=== PATIENT | male | born 1930 | race Caucasian/White ===

== ENCOUNTER → 2017-07-23 | Outpatient (CLI) | payer MEDICARE ==
[2017-07-23 17:40] LABS: BASO % 0.4 %; BASO ABS # 0.02 K/uL (0-0.2); EOS % 1.3 %; EOS ABS # 0.06 K/uL (0-0.5); HEMATOCRIT 38.3 % (42-52); HEMOGLOBIN 12.3 g/dL (14.0-18.0); IG# 0.01 K/uL (0.00-0.02); LYMPH % 35.9 %; LYMPH ABS # 1.63 K/uL (1.2-3.4); MEAN CORPUSCULAR HEMOGLOBIN 31.5 pg (25-34); MEAN CORPUSCULAR HGB CONC 32.1 g/dl (32-36); MEAN PLATELET VOLUME 11.1 fL (7.4-10.4); MONO % 26.9 %; MONO ABS # 1.22 K/uL (0.11-0.59); NEUT % 35.3 %; PLATELET COUNT 106 K/uL (130-400); RED CELL DISTRIBUTION WIDTH SD 57.7 fL (36.4-46.3); WHITE BLOOD COUNT 4.54 K/uL (4.8-10.8)
[2017-07-23 17:55] LABS: ALBUMIN 3.9 gm/dl (3.4-5.0); ALT/SGPT 24 U/L (12-78); BLOOD UREA NITROGEN 26 mg/dl (7-18); CALCIUM 8.8 mg/dl (8.5-10.1); CARBON DIOXIDE 27 mmol/L (21-32); CHOLESTEROL 97 mg/dl (0-200); GLUCOSE 83 mg/dl (70-99); LDL CHOLESTEROL CALCULATED 34 mg/dl; POTASSIUM 4.6 mmol/L (3.5-5.1); SODIUM 139 mmol/L (136-145)
[2017-07-23 18:06] LABS: ALKALINE PHOSPHATASE 47 U/L (45-117); AST/SGOT 32 U/L (15-37); TOTAL PROTEIN 8.3 gm/dl (6.4-8.2)
== END | disposition home or self-care (01) ==
LOC: C.LABBFT 12:02
PROVIDERS: ATTEND Internal Medicine
DX: I25.10 Atherosclerotic heart disease of native coronary artery without angina pectoris (principal); E78.5 Hyperlipidemia, unspecified; I48.91 Unspecified atrial fibrillation

== ENCOUNTER → 2017-08-06 | Outpatient (CLI) | payer MEDICARE ==
[2017-08-06 17:58] LABS: BASO % 0.4 %; BASO ABS # 0.02 K/uL (0-0.2); EOS % 1.5 %; EOS ABS # 0.07 K/uL (0-0.5); HEMATOCRIT 38.7 % (42-52); IG# 0.02 K/uL (0.00-0.02); LYMPH % 41.5 %; LYMPH ABS # 1.98 K/uL (1.2-3.4); MEAN CELL VOLUME 95.6 fL (80-100); MEAN CORPUSCULAR HEMOGLOBIN 32.1 pg (25-34); MEAN CORPUSCULAR HGB CONC 33.6 g/dl (32-36); MEAN PLATELET VOLUME 11.3 fL (7.4-10.4); MONO ABS # 1.05 K/uL (0.11-0.59); NEUT % 34.2 %; NEUT ABS # 1.63 K/uL (1.4-6.5); PLATELET COUNT 101 K/uL (130-400); RED CELL DISTRIBUTION WIDTH CV 15.5 % (11.5-14.5); RED CELL DISTRIBUTION WIDTH SD 54.6 fL (36.4-46.3); WHITE BLOOD COUNT 4.77 K/uL (4.8-10.8)
[2017-08-06 18:03] LABS: ALBUMIN 3.9 gm/dl (3.4-5.0); ALT/SGPT 23 U/L (12-78); BLOOD UREA NITROGEN 27 mg/dl (7-18); CALCIUM 9.1 mg/dl (8.5-10.1); CARBON DIOXIDE 30 mmol/L (21-32); CREATININE 1.25 mg/dl (0.60-1.40); GLUCOSE 93 mg/dl (70-99); POTASSIUM 4.9 mmol/L (3.5-5.1); SODIUM 139 mmol/L (136-145)
[2017-08-06 18:13] LABS: ALKALINE PHOSPHATASE 47 U/L (45-117); AST/SGOT 31 U/L (15-37); TOTAL PROTEIN 8.6 gm/dl (6.4-8.2)
== END ==
LOC: C.LABBFT 13:19
PROVIDERS: ATTEND Internal Medicine
DX: I25.10 Atherosclerotic heart disease of native coronary artery without angina pectoris (principal)

== ENCOUNTER 2018-06-27 20:06 | Inpatient (IN) ==
--- NOTE | 2018-06-27 20:46 | XRay Report ---
XR chest 1V portable CLINICAL HISTORY: Dyspnea COUGH COMPARISON STUDY: No previous studies for comparison. FINDINGS: The heart is enlarged. There are postsurgical changes of a midline sternotomy. There are ri ght lower lobe airspace opacity suspicious for pneumonia. There is mild elevation of the interstitium , and coexistent mild pulmonary vascular congestion is suspected. Trace pleural effusions are suspect ed.[ IMPRESSION: 1. Cardiomegaly, mild pulmonary vascular congestion, and trace pleural effusions 2. Focal right lower lobe airspace opacity suspicious for a pneumonia given the history of cough. Cli nical and radiographic follow-up is recommended. Electronically signed by: Ernie Zarate M.D. 06/27/2018 8:44 PM
[2018-06-27 20:49] LABS: Basophils # (auto) 0.01 K/uL (0-0.2); Basophils % (auto) 0.1 %; Eosinophils # (auto) 0.03 K/uL (0-0.5); Eosinophils % (auto) 0.3 %; Hematocrit (blood only) 36.5 % (42-52); Hemoglobin 11.7 g/dL (14.0-18.0); Immature Granulocytes # (auto) 0.04 K/uL (0.00-0.02); Immature Granulocytes % (auto) 0.3 %; Lymphocytes # (auto) 1.13 K/uL (1.2-3.4); Lymphocytes % (auto) 9.7 %; Mean Corpuscular Hgb Conc 32.1 g/dL (32-36); Mean Corpuscular Volume 95.8 fL (80-100); Mean Platelet Volume 11.2 fL (7.4-10.4); Monocytes # (auto) 1.91 K/uL (0.11-0.59); Monocytes % (auto) 16.4 %; Neutrophils # (auto) 8.53 K/uL (1.4-6.5); Neutrophils % (auto) 73.2 %; Platelet Count 133 K/uL (130-400); RDW Coefficient of Variation 15.5 % (11.5-14.5); RDW Standard Deviation 53.9 fL (36.4-46.3); Red Blood Count 3.81 M/uL (4.7-6.1); White Blood Count 11.65 K/uL (4.8-10.8)
[2018-06-27] MEDS ORDERED: ONDANSETRON INJ 2 MG/ML 2 ML VIAL IV STA (20:58)
[2018-06-27] MEDS: LEVOFLOXACIN/D5W 750 MG/150 ML BAG IV SCH (21:00)
[2018-06-27 21:01] LABS: INR 1.8 (0.9-1.1); Partial Thromboplastin Ratio 1.1; Prothrombin Time 17.6 Seconds (9.0-12.0)
[2018-06-27 22:05] LABS: Alanine Aminotransferase 25 U/L (12-78); Albumin Globulin Ratio 0.8 (0.9-2); Alkaline Phosphatase 66 U/L (45-117); Aspartate Aminotransferase 31 U/L (15-37); Blood Urea Nitrogen 28 mg/dl (7-18); Carbon Dioxide 26 mmol/L (21-32); Chloride 110 mmol/L (98-107); Creatinine Clr Calc Pharmacy 47.3 ml/min; Est GFR (African American) 58.2; Est GFR (Non-African American) 50.2; Globulin 5.1 gm/dl (2.5-4.0); Glucose 149 mg/dl (70-99); Potassium 4.5 mmol/L (3.5-5.1); Sodium 141 mmol/L (136-145); Total Protein 9.1 gm/dl (6.4-8.2)
[2018-06-27 22:16] LABS: Bilirubin,Total 1.4 mg/dl (0.2-1); Troponin I < 0.015 ng/ml (0-0.045)
[2018-06-27] MEDS ORDERED: IOVERSOL 100ml IV PRN (22:24)
--- NOTE | 2018-06-27 22:34 | CT Scan Report ---
CT ANGIOGRAM OF THE CHEST CLINICAL HISTORY: Shortness of breath, cough, hemoptysis. Possible pulmonary embolism. COMPARISON STUDY: Chest x-ray dated 06/27/2018 TECHNIQUE: Following the IV administration of 89 mL of Optiray-320, CT angiogram of the thorax was pe rformed from the thoracic inlet to the lung bases utilizing the pulmonary embolus protocol. Images ar e reviewed in the axial, sagittal, and coronal planes. IV contrast was administered without complicat ion. MIP imaging was performed. A dose lowering technique was utilized adhering to the principles of ALARA. CT DOSE: 389.81 mGy.cm FINDINGS: The liver has a nodular contour suggesting underlying cirrhosis. There is a rim calcified 9 mm left lobe thyroid nodule. There are mildly enlarged paratracheal and AP window lymph nodes. There is no evidence of pathologic axillary lymphadenopathy. There is mild aneurysmal dilatation of the ascending thoracic aorta which measures 43 mm. There were no pulmonary artery filling defects to indicate acute pulmonary embolism. The heart is enlarged with coronary artery calcifications. There is a small left pleural effusion and trace right pleural effusion. There are extensive right lower lobe airspace opacities. Right middle lobe and left lower lobe airspa ce opacities are also present. The findings statistically represent a pneumonia. Pulmonary hemorrhage and edema could appear similar. There is mild underlying emphysema. There is lower lobe bronchial wa ll thickening. IMPRESSION: 1. Extensive bilateral lower lobe airspace opacities, likely representing a multifocal pneumonia. Pul monary hemorrhage and edema could appear similar and clinical correlation and follow-up will be neces haris 2. No evidence of acute pulmonary embolism 3. Moderate to marked cardiomegaly with coronary calcifications 4. Small left pleural effusion and trace right pleural effusion 5. Mild aneurysmal dilatation of the ascending thoracic aorta (43 mm) 6. Mild mediastinal lymphadenopathy Electronically signed by: Ernie Zarate M.D. 06/27/2018 10:33 PM
[2018-06-27] MEDS ORDERED: cefTRIAXone SODIUM 1,000 MG/50 ML BAG IV STA (22:49)
[2018-06-27] MEDS ORDERED: PHYTONADIONE 5 MG in SODIUM CHLORIDE 0.9% 50 ML IV ONE (22:50)
--- NOTE | 2018-06-28 00:04 | Emergency Department Note ---
Entered by Shreya Tolliver acting as a scribe for Juan Newman DO History of Present Illness General Chief complaint: GI Assessment Stated complaint: COLD, COUGHING UP BLOOD/ ON BLOOD THINNERS Source: patient History of Present Illness Onset (ago): week(s) (few) Location: chest Pain Consistency: + other (worsening) Quality: + other (cough) Associated symptoms: + other (positive coughing up blood; negative abdominal pain; negative diarrhea; negative urinary symptoms); no nausea/vomiting and no shortness of breath The patient is a 88 year old male who presents to the Emergency Room with complaints of a worsening cough that began a few weeks prior to arrival. The patient states that he has had a runny nose during this time. The patient states that his cough had improved, but states that it has gotten worse over the past day. The patient states that an hour prior to arrival, he had a continuous cough for about 10 minutes. He states that he coughed up blood at this time. The patient denies abdominal pain, nausea, vomiting, diarrhea, urinary symptoms, or shortness of breath. The patient states that he is on Coumadin, and states that he has a history of Afib and a quadruple bypass. The patient denies a history of blood clots. Home Medications Home Medications Medication Instructions Recorded Confirmed Type digoxin 125 mcg tablet 0.125 mg PO DAILY 02/20/18 06/27/18 History dorzolamide-timolol (PF) 2 %-0.5 % 1 drops OPB DAILY ea 02/20/18 06/27/18 History eye drops in a dropperette finasteride 5 mg tablet 5 mg PO DAILY 02/20/18 06/27/18 History lutein-zeaxanthin 25 mg-5 mg 1 cap PO DAILY cap 02/20/18 06/27/18 History capsule pravastatin 40 mg tablet 40 mg PO DAILY 02/20/18 06/27/18 History tamsulosin 0.4 mg capsule 0.4 mg PO DAILY 02/20/18 06/27/18 History verapamil ER 180 mg 24 hr 180 mg PO DAILY 02/20/18 06/27/18 History capsule,extended release warfarin 4 mg tablet 4 mg PO DAILY 02/20/18 06/27/18 History Allergies Allergy/AdvReac Type Severity Reaction Status Date / Time No Known Allergies Allergy Verified 06/27/18 20:38 Past Med/Surg History Medical History Afib (Acute) [facility] (current) use of anticoagulants (Acute) High cholesterol Surgical History History of coronary artery bypass surgery Social History Feels Safe at Home: Yes Smoking Status: Former smoker Review of Systems See HPI for pertinent positives & negatives. and A total of 10 systems reviewed and were otherwise negative Physical Exam Vital Signs Vital Signs - 24 hr 06/27/18 20:08 06/27/18 21:01 06/27/18 21:02 Temperature 36.4 C L Temperature Source Oral Sepsis Recent Fever Within 48 Hours No Sepsis Action Taken by Nursing No Action Required Pulse Rate 101 H 97 H Pulse Rate [Right Finger] 95 H Pulse Rhythm Irregular Pulse Rhythm [Right Finger] Irregular Pulse Strength [Right Finger] Normal Respiratory Rate 22 30 H Respiratory Effort / Characteristics Non-Labored Respiratory Depth Normal Normal Respiratory Pattern Regular Blood Pressure 183/82 H Blood Pressure [Left Arm] 168/90 H Blood Pressure Mean 115 Blood Pressure Mean [Left Arm] 116 Blood Pressure Position [Left Arm] Lying Pulse Oximetry 91 85 L 85 L Oxygen Delivery Method Room Air Room Air Nasal Cannula Oxygen Flow Rate 4 06/27/18 22:00 06/27/18 22:41 Temperature Temperature Source Sepsis Recent Fever Within 48 Hours Sepsis Action Taken by Nursing Pulse Rate Pulse Rate [Right Finger] 84 90 Pulse Rhythm Pulse Rhythm [Right Finger] Pulse Strength [Right Finger] Respiratory Rate 26 H 22 Respiratory Effort / Characteristics Respiratory Depth Respiratory Pattern Blood Pressure Blood Pressure [Left Arm] 158/77 H 174/86 H Blood Pressure Mean Blood Pressure Mean [Left Arm] 104 115 Blood Pressure Position [Left Arm] Lying Pulse Oximetry 97 94 Oxygen Delivery Method Nasal Cannula Nasal Cannula Oxygen Flow Rate 4 4 GENERAL: Sitting up in bed, alert, well appearing, well nourished, no acute distress, non-toxic. Dry productive cough. EYE EXAM: normal conjunctiva. OROPHARYNX: no exudate, no erythema, lips, buccal mucosa, and tongue normal and mucous membranes are moist NECK: supple, no nuchal rigidity, no adenopathy, non-tender LUNGS: Normal chest wall mechanics. Diffuse wheezing bilaterally, worse at the bases. HEART: no murmurs, S1 normal and S2 normal ABDOMEN: abdomen soft, non-tender, normo-active bowel, sounds, no masses, no rebound or guarding. BACK: Back is symmetrical on inspection and there is no deformity, no midline tenderness, no CVA tenderness. SKIN: no rashes and no bruising UPPER EXTREMITIES: upper extremities are grossly normal. LOWER EXTREMITIES: Calves are equal bilaterally with mild pedal edema. NEURO EXAM: Normal sensorium, cranial nerves II-XII intact, normal speech, no weakness of arms, no weakness of legs. Course ED COURSE: Vital signs were reviewed and showed hypertension The patients medical record was reviewed The above diagnostic studies were performed and reviewed. ED treatments and interventions as stated above. 2015: The patient was evaluated in room B6. A complete history and physical examination was performed. 2244: Upon reevaluation, the patient is resting comfortably. I discussed my findings with the patient and he understands and agrees with the treatment plan. 2248: I discussed the case with [facility] who states that the patient can be reversed and given 5 of Vitamin K. Based on the patients age, coexisting illnesses, exam and lab findings the decision to treat as an inpatient was made. The patient remained stable while under my care. The patient will be evaluated for further management. Administered Medications Levofloxacin/Dextrose (Levaquin/D5w) 750 mg in 150 mls @ 100 mls/hr IV Q24H OMA Stop: 06/29/18 20:59 Last Infusion: 06/27/18 23:07 Dose: 0 mls/hr Admin: 06/27/18 21:00 Dose: 100 mls/hr Ioversol (Optiray 320 100ml) 89 ml IV ONCE PRN PRN Reason: Interaction Checking Stop: 07/01/18 22:23 Last Admin: 06/27/18 22:24 Dose: 89 ml Discontinued Medications Ceftriaxone Sodium (Rocephin) 1,000 mg in 50 mls @ 100 mls/hr IV NOW STA Stop: 06/27/18 23:18 Last Infusion: 06/27/18 23:29 Dose: 0 mls/hr Admin: 06/27/18 23:07 Dose: 100 mls/hr Phytonadione 5 mg/ Sodium (Chloride) 50.5 mls @ 101 mls/hr IV ONE ONE Stop: 06/27/18 23:19 Last Admin: 06/27/18 23:29 Dose: 101 mls/hr Ondansetron HCl (Zofran) 4 mg IV NOW STA Stop: 06/27/18 20:59 Last Admin: 06/27/18 21:00 Dose: 4 mg Medical Decision Making Differential Diagnosis Differential diagnosis: Etiologies such as infections, reactive airway disease, COPD, pneumonia, pleural effusion, pulmonary edema, ARDS, pneumothorax, CHF, cardiac ischemia, cardiac tamponade, dysrhythmia, anemia, pulmonary embolism, musculoskeletal, gastrointestinal process, as well as others were entertained. Medical Records Attestation: I reviewed the patient's medical records. Home Medications Current Medication List: was personally reviewed by me Laboratory Data Attestation: I reviewed the patient's lab results. Result diagrams: 06/27/18 20:33 06/27/18 20:33 Lab Results 06/27/18 06/27/18 06/27/18 Range/Units 20:33 20:33 20:33 WBC 11.65 H (4.8-10.8) K/uL RBC 3.81 L (4.7-6.1) M/uL Hgb 11.7 L (14.0-18.0) g/dL Hct 36.5 L (42-52) % MCV 95.8 (80-100) fL MCH 30.7 (25-34) pg MCHC 32.1 (32-36) g/dL RDW Std Deviation 53.9 H (36.4-46.3) fL RDW Coeff of Stephan 15.5 H (11.5-14.5) % Plt Count 133 (130-400) K/uL MPV 11.2 H (7.4-10.4) fL Immature Gran % (Auto) 0.3 % Neut % (Auto) 73.2 % Lymph % (Auto) 9.7 % Becker % (Auto) 16.4 % Eos % (Auto) 0.3 % Baso % (Auto) 0.1 % Immature Gran # (Auto) 0.04 H (0.00-0.02) K/uL Neut # (Auto) 8.53 H (1.4-6.5) K/uL Lymph # (Auto) 1.13 L (1.2-3.4) K/uL Becker # (Auto) 1.91 H (0.11-0.59) K/uL Eos # (Auto) 0.03 (0-0.5) K/uL Baso # (Auto) 0.01 (0-0.2) K/uL PT 17.6 H (9.0-12.0) Seconds INR 1.8 H (0.9-1.1) APTT 29.0 (21.0-31.0) Seconds PTT Ratio 1.1 Sodium 141 (136-145) mmol/L Potassium 4.5 (3.5-5.1) mmol/L Chloride 110 H (98-107) mmol/L Carbon Dioxide 26 (21-32) mmol/L Anion Gap 5.0 (3-11) BUN 28 H (7-18) mg/dl Creatinine 1.26 (0.6-1.4) mg/dl Est Cr Clr Drug Dosing 47.3 ml/min Est GFR ( Amer) 58.2 Est GFR (Non-Af Amer) 50.2 BUN/Creatinine Ratio 22.0 H (10-20) Glucose 149 H (70-99) mg/dl Calcium 9.0 (8.5-10.1) mg/dl Total Bilirubin 1.4 H (0.2-1) mg/dl AST 31 (15-37) U/L ALT 25 (12-78) U/L Alkaline Phosphatase 66 (45-117) U/L Troponin I < 0.015 (0-0.045) ng/ml Total Protein 9.1 H (6.4-8.2) gm/dl Albumin 4.0 (3.4-5.0) gm/dl Globulin 5.1 H (2.5-4.0) gm/dl Albumin/Globulin Ratio 0.8 L (0.9-2) Influenza Type A Ag (Neg) Influenza Type B Ag (Neg) 06/27/18 Range/Units 20:33 WBC (4.8-10.8) K/uL RBC (4.7-6.1) M/uL Hgb (14.0-18.0) g/dL Hct (42-52) % MCV (80-100) fL MCH (25-34) pg MCHC (32-36) g/dL RDW Std Deviation (36.4-46.3) fL RDW Coeff of Stephan (11.5-14.5) % Plt Count (130-400) K/uL MPV (7.4-10.4) fL Immature Gran % (Auto) % Neut % (Auto) % Lymph % (Auto) % Becker % (Auto) % Eos % (Auto) % Baso % (Auto) % Immature Gran # (Auto) (0.00-0.02) K/uL Neut # (Auto) (1.4-6.5) K/uL Lymph # (Auto) (1.2-3.4) K/uL Becker # (Auto) (0.11-0.59) K/uL Eos # (Auto) (0-0.5) K/uL Baso # (Auto) (0-0.2) K/uL PT (9.0-12.0) Seconds INR (0.9-1.1) APTT (21.0-31.0) Seconds PTT Ratio Sodium (136-145) mmol/L Potassium (3.5-5.1) mmol/L Chloride (98-107) mmol/L Carbon Dioxide (21-32) mmol/L Anion Gap (3-11) BUN (7-18) mg/dl Creatinine (0.6-1.4) mg/dl Est Cr Clr Drug Dosing ml/min Est GFR ( Amer) Est GFR (Non-Af Amer) BUN/Creatinine Ratio (10-20) Glucose (70-99) mg/dl Calcium (8.5-10.1) mg/dl Total Bilirubin (0.2-1) mg/dl AST (15-37) U/L ALT (12-78) U/L Alkaline Phosphatase (45-117) U/L Troponin I (0-0.045) ng/ml Total Protein (6.4-8.2) gm/dl Albumin (3.4-5.0) gm/dl Globulin (2.5-4.0) gm/dl Albumin/Globulin Ratio (0.9-2) Influenza Type A Ag Neg for Influ A (Neg) Influenza Type B Ag Neg for Influ B (Neg) Imaging Data Radiologist's Impression: Radiology results as stated below per my review and the radiologist's interpretation: XR chest 1V portable CLINICAL HISTORY: Dyspnea COUGH COMPARISON STUDY: No previous studies for comparison. FINDINGS: The heart is enlarged. There are postsurgical changes of a midline sternotomy. There are right lower lobe airspace opacity suspicious for pneumonia. There is mild elevation of the interstitium, and coexistent mild pulmonary vascular congestion is suspected. Trace pleural effusions are suspected.[ IMPRESSION: 1. Cardiomegaly, mild pulmonary vascular congestion, and trace pleural effusions 2. Focal right lower lobe airspace opacity suspicious for a pneumonia given the history of cough. Clinical and radiographic follow-up is recommended. Electronically signed by: Ernie Zarate M.D. 06/27/2018 8:[address] ANGIOGRAM OF THE CHEST CLINICAL HISTORY: Shortness of breath, cough, hemoptysis. Possible pulmonary embolism. COMPARISON STUDY: Chest x-ray dated 06/27/2018 TECHNIQUE: Following the IV administration of 89 mL of Optiray-320, CT angiogram of the thorax was performed from the thoracic inlet to the lung bases utilizing the pulmonary embolus protocol. Images are reviewed in the axial, sagittal, and coronal planes. IV contrast was administered without complication. MIP imaging was performed. A dose lowering technique was utilized adhering to the principles of ALARA. CT DOSE: 389.81 mGy.cm FINDINGS: The liver has a nodular contour suggesting underlying cirrhosis. There is a rim calcified 9 mm left lobe thyroid nodule. There are mildly enlarged paratracheal and AP window lymph nodes. There is no evidence of pathologic axillary lymphadenopathy. There is mild aneurysmal dilatation of the ascending thoracic aorta which measures 43 mm. There were no pulmonary artery filling defects to indicate acute pulmonary embolism. The heart is enlarged with coronary artery calcifications. There is a small left pleural effusion and trace right pleural effusion. There are extensive right lower lobe airspace opacities. Right middle lobe and left lower lobe airspace opacities are also present. The findings statistically represent a pneumonia. Pulmonary hemorrhage and edema could appear similar. There is mild underlying emphysema. There is lower lobe bronchial wall thickening. IMPRESSION: 1. Extensive bilateral lower lobe airspace opacities, likely representing a multifocal pneumonia. Pulmonary hemorrhage and edema could appear similar and clinical correlation and follow-up will be necessary 2. No evidence of acute pulmonary embolism 3. Moderate to marked cardiomegaly with coronary calcifications 4. Small left pleural effusion and trace right pleural effusion 5. Mild aneurysmal dilatation of the ascending thoracic aorta (43 mm) 6. Mild mediastinal lymphadenopathy Electronically signed by: Ernie Zarate M.D. 06/27/2018 10:33 PM ECG Data Attestation: I personally reviewed and interpreted this ECG as follows: Indication: other (hemoptysis) Rate (beats per minute): 103 Rhythm: junctional (with bigeminy) Findings: + RBBB and + ST depression (inferior; lateral) Blood Pressure Blood Pressure Findings: Elevated blood pressure Blood Pressure Disposition: further management by hospitalist LAWR[place] Narrative Patient is an 88-year-old male who presents the ER for hemostasis of this. He admits to a persistent cough which he notes has been improving since . During exam he has a persistent hacking cough. Lungs have wheezing on bilateral lung johnson. He is afebrile. He was slightly hypoxic. Labs were obtained and showed a faint leukocytosis of 11.6 thousand. Hemoglobin was 11.7. INR was slightly subtherapeutic at 1.8. BMP was unremarkable along with LFTs and troponin. Influenza a and B were negative. Chest x-ray with bilateral infiltrates. CT PE was performed as he has hemoptysis and INR is slightly subtherapeutic although unlikely did also want to visualize vessels. CT was read as likely infectious but pulmonary edema/hemorrhage could appear the same. Discussed with the hospitalist and updated the patient. Did reverse him with IV vitamin K. Patient was given IV antibiotics. He was updated at bedside and admitted to the hospitalist with hemoptysis, bilateral infiltrates persistent cough since favoring infectious etiology. Impression & Plan Hemoptysis, Pneumonia Discharge Plan Visit Data Chief Complaint: GI Assessment Stated Complaint: COLD, COUGHING UP BLOOD/ ON BLOOD THINNERS ED Provider: Juan Newman Discharge Problem: Hemoptysis, Pneumonia Patient Disposition: Being Evaluated by Hospitalist Forms Stand Alone Forms: My [facility] Prescriptions Prescriptions: No Action tamsulosin 0.4 mg capsule 0.4 mg PO DAILY RF: 0 pravastatin 40 mg tablet 40 mg PO DAILY RF: 0 digoxin 125 mcg tablet 0.125 mg PO DAILY RF: 0 verapamil 180 mg capsule,ext rel. pellets 24 hr 180 mg PO DAILY RF: 0 finasteride 5 mg tablet 5 mg PO DAILY RF: 0 warfarin [Coumadin] 4 mg tablet 4 mg PO DAILY RF: 0 dorzolamide-timolol (PF) 2-0.5 % dropperette 1 drops OPB DAILY RF: 0 lutein-zeaxanthin [Ocuvite Lutein 25] 25-5 mg capsule 1 cap PO DAILY RF: 0 Referrals Referrals: Yordan Brian MD [Primary Care Provider] - The scribe's documentation has been prepared under my direction and personally reviewed by me in its entirety. I confirm that the note above accurately reflects all work, treatment, procedures, and medical decision making performed by me.
--- NOTE | 2018-06-28 02:43 | History & Physical Report ---
Date of Service June 28, 2018 Assessment & Plan (1) Hemoptysis: Hemoptysis/extensive bilateral lower lobe multifocal pneumonia community- acquired-- Ceftriaxone 1 g IV daily Levofloxacin 750 mg IV every 24 hours Solu-Medrol 40 mg IV every 8 hours Guaifenesin extended release 600 mg by mouth twice a day Xopenex/Atovent nebs q6hwa and q2h prn Nasal cannula 2 L of oxygen titrating to keep pulse ox greater than or equal to 92%. Sputum Gram stain and culture. Partially reverse warfarin effect with phytonadione 5 mg IV Consult pulmonology. The patient will be n.p.o. after midnight, and then when assessed by pulmonology in the morning, if no bronchoscopy planned, will resume all oral medications. Present on Admission?: Yes (2) Pneumonia: As above. Present on Admission?: Yes (3) Atrial fibrillation: Hold warfarin and partially reverse with phytonadione 5 mg IV x1. Until decision made regarding bronchoscopy, hold verapamil and digoxin. Lopressor 2.5 mg IV every 4 hours as needed heart rate greater than 100 or systolic blood pressure greater than 150 Present on Admission?: Yes (4) Hyperlipidemia: Hold pravastatin, until decision regarding bronchoscopy. Present on Admission?: Yes (5) Chronic anticoagulation: Hold warfarin as noted above. Partially reverse with phytonadione 5 mg IV. Present on Admission?: Yes (6) Thoracic aortic aneurysm without rupture: 43 mm in diameter, noted incidentally on CTA of chest. Will need to be followed serially in the outpatient setting. Present on Admission?: Yes (7) Mediastinal lymphadenopathy: Likely reactive secondary to infection. If persistent upon repeat CT after infection cleared, may require additional workup then. Present on Admission?: Yes (8) Left thyroid nodule: Noted incidentally on CTA of chest. 9 mm in size. Order a TSH, free T4 and free T3. Decision whether or not to biopsy can be determined by PCP in outpatient setting Present on Admission?: Yes (9) BPH (benign prostatic hyperplasia): Hold finasteride and tamsulosin until decision regarding bronchoscopy. Present on Admission?: Yes (10) Glaucoma: Continue prescription eyedrops. Present on Admission?: Yes History of Present Illness Chief Complaint: The patient reports to the emergency department with complaint of recently having a cold, with chest congestion and productive cough, with the development of coughing up blood beginning today. Primary Care Provider: Yovanny Brian MD The patient is an 88-year-old male who reports having a worsening cough that began a few weeks ago. His cough had briefly improved, but did worsen over the past 24 hours, and when he had a paroxysmal coughing spell earlier in the day which lasted 10 minutes, he began to cough up blood. He does take Coumadin for atrial fibrillation. He has not had any previous histories of bleeding. Allergies Allergy/AdvReac Type Severity Reaction Status Date / Time No Known Allergies Allergy Verified 06/27/18 20:38 Home Medications Home Medications Medication Instructions Recorded Confirmed Type digoxin 125 mcg tablet 0.125 mg PO DAILY 02/20/18 06/27/18 History dorzolamide-timolol (PF) 2 %-0.5 % 1 drops OPB DAILY ea 02/20/18 06/27/18 History eye drops in a dropperette finasteride 5 mg tablet 5 mg PO DAILY 02/20/18 06/27/18 History lutein-zeaxanthin 25 mg-5 mg 1 cap PO DAILY cap 02/20/18 06/27/18 History capsule pravastatin 40 mg tablet 40 mg PO DAILY 02/20/18 06/27/18 History tamsulosin 0.4 mg capsule 0.4 mg PO DAILY 02/20/18 06/27/18 History verapamil ER 180 mg 24 hr 180 mg PO DAILY 02/20/18 06/27/18 History capsule,extended release warfarin 4 mg tablet 4 mg PO DAILY 02/20/18 06/27/18 History Past Med/Surg History Medical History Afib (Acute) group home (current) use of anticoagulants (Acute) High cholesterol Surgical History History of coronary artery bypass surgery Social History Feels Safe at Home: Yes Smoking Status: Former smoker Review of Systems The patient denies chest pain, palpitations, lower extremity swelling, sore throat, fevers, chills, sweats, weight change, diarrhea , constipation, abdominal pain, pelvic pain, blood in urine or stool, dysuria, urinary frequency or urgency, lightheadedness, dizziness, headache, memory loss, loss of consciousness, imbalance, focal or generalized weakness, numbness or tingling in arms or legs, generalized arthralgias or myalgias, back or neck pain , or night sweats. The review of systems is otherwise negative other than for that already noted above, and at least 10 systems have been reviewed. Physical Exam 2 Vital Signs (Past 24 Hours): Last Vital Signs Temp 36.4 C L 06/27/18 20:08 Pulse 85 06/28/18 01:16 Resp 23 06/28/18 01:16 BP 128/60 06/28/18 01:16 Pulse Ox 95 06/28/18 01:16 Physical Exam: The patient is awake, alert and oriented 3, well developed and well nourished, normocephalic and atraumatic, lying in bed and in no acute distress. HEENT--PERRL, EOMI, mucous membranes and oropharynx dry. Neck--supple. No JVD. No bruits. Thyroid normal, trachea midline, no adenopathy. Heart--normal S1 and S2. No murmurs, rubs or gallops. Lungs--clear bilaterally, no respiratory distress, no accessory muscle use. Abdomen--normal bowel sounds and soft. Nontender. Nondistended, no hernias or masses, no organomegaly. Extremities--no cyanosis or clubbing. No edema. There are good distal pulses b/ l. Dermatologic--normal skin turgor, normal color, no abnormal lymph nodes, no rash. Neurologic--cranial nerves II through XII grossly intact. Rheumatologic--normal range of motion. Psychiatric--normal affect. Results & Data Laboratory Results Laboratory Results WBC 11.65 K/uL (4.8-10.8) H 06/27/18 20:33 RBC 3.81 M/uL (4.7-6.1) L 06/27/18 20:33 Hgb 11.7 g/dL (14.0-18.0) L 06/27/18 20:33 Hct 36.5 % (42-52) L 06/27/18 20:33 MCV 95.8 fL (80-100) 06/27/18 20:33 MCH 30.7 pg (25-34) 06/27/18 20:33 MCHC 32.1 g/dL (32-36) 06/27/18 20:33 RDW Std Deviation 53.9 fL (36.4-46.3) H 06/27/18 20:33 RDW Coeff of Stephan 15.5 % (11.5-14.5) H 06/27/18 20:33 Plt Count 133 K/uL (130-400) 06/27/18 20:33 MPV 11.2 fL (7.4-10.4) H 06/27/18 20:33 Immature Gran % (Auto) 0.3 % 06/27/18 20:33 Neut % (Auto) 73.2 % 06/27/18 20:33 Lymph % (Auto) 9.7 % 06/27/18 20:33 Mills % (Auto) 16.4 % 06/27/18 20:33 Eos % (Auto) 0.3 % 06/27/18 20:33 Baso % (Auto) 0.1 % 06/27/18 20:33 Immature Gran # (Auto) 0.04 K/uL (0.00-0.02) H 06/27/18 20:33 Neut # (Auto) 8.53 K/uL (1.4-6.5) H 06/27/18 20:33 Lymph # (Auto) 1.13 K/uL (1.2-3.4) L 06/27/18 20:33 Mills # (Auto) 1.91 K/uL (0.11-0.59) H 06/27/18 20:33 Eos # (Auto) 0.03 K/uL (0-0.5) 06/27/18 20:33 Baso # (Auto) 0.01 K/uL (0-0.2) 06/27/18 20:33 PT 17.6 Seconds (9.0-12.0) H 06/27/18 20:33 INR 1.8 (0.9-1.1) H 06/27/18 20:33 APTT 29.0 Seconds (21.0-31.0) 06/27/18 20:33 PTT Ratio 1.1 06/27/18 20:33 Sodium 141 mmol/L (136-145) 06/27/18 20:33 Potassium 4.5 mmol/L (3.5-5.1) 06/27/18 20:33 Chloride 110 mmol/L (98-107) H 06/27/18 20:33 Carbon Dioxide 26 mmol/L (21-32) 06/27/18 20:33 Anion Gap 5.0 (3-11) 06/27/18 20:33 BUN 28 mg/dl (7-18) H 06/27/18 20:33 Creatinine 1.26 mg/dl (0.6-1.4) 06/27/18 20:33 Est Cr Clr Drug Dosing 47.3 ml/min 06/27/18 20:33 Est GFR ( Amer) 58.2 06/27/18 20:33 Est GFR (Non-Af Amer) 50.2 06/27/18 20:33 BUN/Creatinine Ratio 22.0 (10-20) H 06/27/18 20:33 Glucose 149 mg/dl (70-99) H 06/27/18 20:33 Calcium 9.0 mg/dl (8.5-10.1) 06/27/18 20:33 Total Bilirubin 1.4 mg/dl (0.2-1) H 06/27/18 20:33 AST 31 U/L (15-37) 06/27/18 20:33 ALT 25 U/L (12-78) 06/27/18 20:33 Alkaline Phosphatase 66 U/L (45-117) 06/27/18 20:33 Troponin I < 0.015 ng/ml (0-0.045) 06/27/18 20:33 Total Protein 9.1 gm/dl (6.4-8.2) H 06/27/18 20:33 Albumin 4.0 gm/dl (3.4-5.0) 06/27/18 20:33 Globulin 5.1 gm/dl (2.5-4.0) H 06/27/18 20:33 Albumin/Globulin Ratio 0.8 (0.9-2) L 06/27/18 20:33 Influenza Type A Ag Neg for Influ A (Neg) 06/27/18 20:33 Influenza Type B Ag Neg for Influ B (Neg) 06/27/18 20:33 Diagnostic Findings [facility], [place] [phone] XRay Report Patient: REENA CHEATHAM Date: 06/27/18 MR#: [id number]: [id number] Acct ID:[id number]: [facility] 1930[facility] Zip: [place] [address] Age: 88Location: ED Sex: M Room/Bed: Att Phy: Diagnosis: COLD, COUGHING UP BLOOD/ ON BLOOD THINNERS Miladys Phy: Yovanny Brian MDService Date: 06/27/18 Fam Phy: Interpreting Phy: Ernie Zarate MD Admit Phy: Ordering Phy: Juan Newman DO cc: ~ XR chest 1V portable CLINICAL HISTORY: Dyspnea COUGH COMPARISON STUDY: No previous studies for comparison. FINDINGS: The heart is enlarged. There are postsurgical changes of a midline sternotomy. There are right lower lobe airspace opacity suspicious for pneumonia. There is mild elevation of the interstitium, and coexistent mild pulmonary vascular congestion is suspected. Trace pleural effusions are suspected.[ IMPRESSION: 1. Cardiomegaly, mild pulmonary vascular congestion, and trace pleural effusions 2. Focal right lower lobe airspace opacity suspicious for a pneumonia given the history of cough. Clinical and radiographic follow-up is recommended. Electronically signed by: Ernie Zarate M.D. 06/27/2018 8:44 PM [place], [place] [phone] CT Scan Report Patient: REENA CHEATHAM Date: 06/27/18 MR#: [id number]: [id number] Acct ID:[id number]: Date: 1930[facility] Zip: [place] [address] Age: 88Location: ED Sex: M Room/Bed: Att Phy: Diagnosis: COLD, COUGHING UP BLOOD/ ON BLOOD THINNERS Miladys Phy: Yovanny Brian MDServ Date: 06/27/18 Fam Phy: Interpreting Phy: Ernie Zarate MD Admit Phy: Ordering Phy: Juan Newman DO cc: ~ CT ANGIOGRAM OF THE CHEST CLINICAL HISTORY: Shortness of breath, cough, hemoptysis. Possible pulmonary embolism. COMPARISON STUDY: Chest x-ray dated 06/27/2018 TECHNIQUE: Following the IV administration of 89 mL of Optiray-320, CT angiogram of the thorax was performed from the thoracic inlet to the lung bases utilizing the pulmonary embolus protocol. Images are reviewed in the axial, sagittal, and coronal planes. IV contrast was administered without complication. MIP imaging was performed. A dose lowering technique was utilized adhering to the principles of ALARA. CT DOSE: 389.81 mGy.cm FINDINGS: The liver has a nodular contour suggesting underlying cirrhosis. There is a rim calcified 9 mm left lobe thyroid nodule. There are mildly enlarged paratracheal and AP window lymph nodes. There is no evidence of pathologic axillary lymphadenopathy. There is mild aneurysmal dilatation of the ascending thoracic aorta which measures 43 mm. There were no pulmonary artery filling defects to indicate acute pulmonary embolism. The heart is enlarged with coronary artery calcifications. There is a small left pleural effusion and trace right pleural effusion. There are extensive right lower lobe airspace opacities. Right middle lobe and left lower lobe airspace opacities are also present. The findings statistically represent a pneumonia. Pulmonary hemorrhage and edema could appear similar. There is mild underlying emphysema. There is lower lobe bronchial wall thickening. IMPRESSION: 1. Extensive bilateral lower lobe airspace opacities, likely representing a multifocal pneumonia. Pulmonary hemorrhage and edema could appear similar and clinical correlation and follow-up will be necessary 2. No evidence of acute pulmonary embolism 3. Moderate to marked cardiomegaly with coronary calcifications 4. Small left pleural effusion and trace right pleural effusion 5. Mild aneurysmal dilatation of the ascending thoracic aorta (43 mm) 6. Mild mediastinal lymphadenopathy Electronically signed by: Ernie Zarate M.D. 06/27/2018 10:33 PM Dictated: 06/27/182227 Transcribed: 06/27/182227 Code Status & VTE Plan Code Status Full code VTE Prophylaxis Plan VTE Prophylaxis will be ordered: Yes _ (1) Pneumonia Aspiration pneumonia type: Laterality: right Lung location: lower lobe of lung Pneumonia type: due to unspecified organism Qualified Code(s): J18.1 - Lobar pneumonia, unspecified organism
[2018-06-28] MEDS ORDERED: ACETAMINOPHEN 1000 MG/100 ML IV IV PRN (03:28)
[2018-06-28] MEDS ORDERED: ONDANSETRON INJ 2 MG/ML 2 ML VIAL IV PRN (03:28)
[2018-06-28] MEDS: methylPREDNISolone 40 MG in SYRINGE 0 ML IV SCH ×3 (04:15→20:35)
[2018-06-28 04:33] LABS: Albumin Level 3.1 gm/dl (3.4-5.0); BUN Creatinine Ratio 22.7 (10-20); Creatinine Clr Calc Pharmacy 51.4 ml/min; Est GFR (African American) 64.4; Est GFR (Non-African American) 55.5; Potassium 4.5 mmol/L (3.5-5.1)
[2018-06-28 04:48] LABS: Albumin Globulin Ratio 0.7 (0.9-2); Bilirubin,Total 1.5 mg/dl (0.2-1); Globulin 4.3 gm/dl (2.5-4.0); T4 Free Thyroxine 0.99 ng/dl (0.8-1.6); Total Protein 7.4 gm/dl (6.4-8.2); Troponin I 0.142 ng/ml (0-0.045)
--- NOTE | 2018-06-28 05:19 | Progress Note ---
Date of Service June 28, 2018 ~5:15 am - Nurse paged to say that patient was placed in a room with another patient upon admission. - Relayed information to Dr. Lama (admitting physician). He stated if the patient doesn't presently have a productive cough the droplet precautions can be discontinued. - Spoke again with nurse. She stated the patient does not presently have a productive cough. I informed her I would discontinue the isolation precautions per Dr. Lama's direction. Brett Aguilera MD PGY2 Overnight call Physical Exam 2 Vital Signs (Past 24 Hours): Last Vital Signs Temp 37 C 06/28/18 03:20 Pulse 86 06/28/18 03:20 Resp 18 06/28/18 03:20 BP 131/68 06/28/18 03:20 Pulse Ox 94 06/28/18 03:20
[2018-06-28 07:04] LABS: Hematocrit (blood only) 33.5 % (42-52); Hemoglobin 10.6 g/dL (14.0-18.0); Mean Corpuscular Hgb Conc 31.6 g/dL (32-36); Mean Corpuscular Volume 95.7 fL (80-100); Mean Platelet Volume 10.4 fL (7.4-10.4); Platelet Count 111 K/uL (130-400); RDW Coefficient of Variation 15.4 % (11.5-14.5); White Blood Count 18.48 K/uL (4.8-10.8)
[2018-06-28] MEDS: ALBUT/IPRATROP 3MG/0.5MG NEB 3 ML VIAL NEB SCH ×2 (07:12→11:01)
[2018-06-28 07:19] LABS: INR 1.7 (0.9-1.1); Partial Thromboplastin Ratio 1.2; Partial Thromboplastin Time 30.3 Seconds (21.0-31.0); Prothrombin Time 16.7 Seconds (9.0-12.0)
[2018-06-28 07:33] LABS: Basophils # (auto) 0.01 K/uL (0-0.2); Basophils % (auto) 0.1 %; Immature Granulocytes # (auto) 0.07 K/uL (0.00-0.02); Immature Granulocytes % (auto) 0.4 %; Lymphocytes # (auto) 1.58 K/uL (1.2-3.4); Lymphocytes % (auto) 8.5 %; Monocytes # (auto) 1.49 K/uL (0.11-0.59); Monocytes % (auto) 8.1 %; Neutrophils # (auto) 15.33 K/uL (1.4-6.5); Neutrophils % (auto) 82.9 %; RBC Morphology Unremarkable
[2018-06-28] MEDS: guaiFENesin 600 MG TABCR PO SCH ×2 (08:28→20:34)
[2018-06-28] MEDS: FINASTERIDE 5 MG TAB PO SCH (08:28)
[2018-06-28] MEDS: DORZOLAMIDE/TIMOLOL 22.3/6.8MG/ML 10 ML BTL OPB SCH (08:28)
[2018-06-28] MEDS: PRAVASTATIN SOD 40 MG TAB PO SCH (08:28)
[2018-06-28] MEDS: VERAPAMIL HCL 180 MG TABCR PO SCH (08:28)
[2018-06-28 09:05] LABS: Appearance Urine Cloudy (Clear); Bacteria Urine Automated Negative (Negative); Bilirubin Urine Negative (Negative); Color Urine Yellow; Epithelial Cell Urine Auto 0-5 /lpf (0-5); Glucose Urine UA Negative (Negative); Ketones Urine Negative (Negative); Leukocyte Esterase Urine Negative (Negative); Nitrite Urine Negative (Negative); Protein Urine Negative (Negative); Specific Gravity Urine 1.027 (1.000-1.030); Urobilinogen Urine Negative (Negative)
[2018-06-28] MEDS: PANTOprazole 40 MG in SYRINGE 0 ML IV SCH (11:43)
[2018-06-28] MEDS ORDERED: ALBUT/IPRATROP 3MG/0.5MG NEB 3 ML VIAL NEB PRN (12:28)
--- NOTE | 2018-06-28 13:36 | History & Physical Bridge Note ---
Date of Service June 28, 2018 History & Physical Bridge Note Patient seen and examined this morning. Doing very well. Feels much better compared to last night. No further hemoptysis. - Continue abx, steroids, nebs - Pulm consult pending
[2018-06-28] MEDS ORDERED: DIGOXIN 0.125 MG TAB PO SCH (16:00)
[2018-06-28] MEDS: LEVOFLOXACIN/D5W 750 MG/150 ML BAG IV SCH (20:35)
[2018-06-28] MEDS ORDERED: TAMSULOSIN HCL 0.4 MG CAP PO SCH (21:00)
--- NOTE | 2018-06-28 21:00 | Pulmonary Consultation ---
Date of Consultation June 28, 2018 Assessment & Plan (1) Chronic anticoagulation: Impression: 1. Community-acquired pneumonia complicated by hemoptysis. Leukocytosis, bilateral infiltrates, cough for 2 weeks all in favor of this diagnosis. 2. Pulmonary hemorrhage is a possibility, however it seems to be equally distributed in the lower lobes. 3. Cardiomyopathy, A. fib, rate controlled. 4. Coagulopathy, secondary to Coumadin however his INR on admission was 1.7. Plan: 1. Continue with ceftriaxone. 2. Continue with Levaquin. 3. No need for steroids, patient does not carries a diagnosis of COPD. 4. Keep Coumadin on hold. 5. Taper oxygen to off. 6. Bronchodilators may help the patient and pulmonary toilet only. 7. Hemoptysis was blood-tinged, resolved according to the patient. 8. No need for bronchoscopy. Thank you, will follow. History of Present Illness Reason for Consultation: Hemoptysis Requesting Physician: Dr. Sheehan Attending Physician: Xander Sheehan MD History of Present Illness Dear Dr. Sheehan: Thank you for the kind referral of Mr. Dow to pulmonary service. This is 88-year-old gentleman with history of persistent cough for the past few weeks, has been also on Coumadin for atrial fibrillation, while he had this vigorous cough, the patient has episodes of blood-tinged sputum for the past 24 hours, he decided to call his Coumadin clinic and they referred him to come into the ER. Patient was admitted to the hospital with diagnosis of hemoptysis. The patient denies any shortness of breath prior to this episode. His cough has been persistent but not nocturnal. It is not positional. No postnasal drip and no heartburn. He denies any headache no fever no constitutional symptoms. The patient denies any chest pain, abdominal pain, nausea or vomiting, no change in bowel movements or urine habits. Review of system apart from the above was unremarkable. Past medical history reviewed and consistent with atrial fibrillation, hyperlipidemia, history of pneumonia, coronary artery disease status post CABG in 2003. Family history does not contribute to his current illness. Review of system otherwise was unremarkable including 14 systems. Patient is non-smoker lifetime with no secondhand exposure to smoking. No industrial exposure. Allergies Allergy/AdvReac Type Severity Reaction Status Date / Time No Known Allergies Allergy Verified 06/27/18 20:38 Home Medications Home Medications Medication Instructions Recorded Confirmed Type digoxin 125 mcg tablet 0.125 mg PO DAILY 02/20/18 06/27/18 History dorzolamide-timolol (PF) 2 %-0.5 % 1 drops OPB DAILY ea 02/20/18 06/27/18 History eye drops in a dropperette finasteride 5 mg tablet 5 mg PO DAILY 02/20/18 06/27/18 History lutein-zeaxanthin 25 mg-5 mg 1 cap PO DAILY cap 02/20/18 06/27/18 History capsule pravastatin 40 mg tablet 40 mg PO DAILY 02/20/18 06/27/18 History tamsulosin 0.4 mg capsule 0.4 mg PO DAILY 02/20/18 06/27/18 History verapamil ER 180 mg 24 hr 180 mg PO DAILY 02/20/18 06/27/18 History capsule,extended release warfarin 4 mg tablet 4 mg PO DAILY 02/20/18 06/27/18 History Patient History Medical History Afib (Acute) retirement (current) use of anticoagulants (Acute) High cholesterol Surgical History History of coronary artery bypass surgery Social History Current Living Situation: Significant Other Other Information That Helps Us Care for You: No Feels Safe at Home: Yes Safety Concerns: Feels Safe At This Time Smoking Status: Former smoker Do You Dip or Chew Tobacco: No Hx Alcohol Use: No Hx Substance Use: No Beliefs That Will Affect Care: None Preferred Language: Surinamese Communication Ability: Effective Financial Agent Required: No Review of Systems As above. Physical Exam 2 Vital Signs (Past 24 Hours): Last Vital Signs Temp 36.3 C L 06/28/18 20:00 Pulse 65 06/28/18 20:00 Resp 20 06/28/18 20:00 BP 123/63 06/28/18 20:00 Pulse Ox 97 06/28/18 20:00 Physical Exam: Vital signs are stable, O2 saturation 97% on 2 L, lungs are minimally rhonchorous, S1-S2 A. fib, abdomen is benign, no edema. Results & Data Laboratory Results Labs showed slightly elevated white count drop in hematocrit from 38-33, thrombocytopenia appears chronic, his INR was subtherapeutic. BUN/creatinine has been stable. Positive troponin. Diagnostic Findings CAT scan was reviewed personally which showed bilateral infiltrates, likely representing pulmonary hemorrhage, although pneumonia cannot be excluded. Small pleural effusion and cardiomegaly was noted.
[2018-06-28] MEDS ORDERED: cefTRIAXone SODIUM 1,000 MG/50 ML BAG IV SCH (23:00)
[2018-06-29 07:09] LABS: Basophils # (auto) 0.01 K/uL (0-0.2); Basophils % (auto) 0.1 %; Hematocrit (blood only) 29.5 % (42-52); Hemoglobin 9.6 g/dL (14.0-18.0); Immature Granulocytes # (auto) 0.08 K/uL (0.00-0.02); Immature Granulocytes % (auto) 0.8 %; Lymphocytes # (auto) 0.51 K/uL (1.2-3.4); Lymphocytes % (auto) 4.8 %; Mean Corpuscular Hgb Conc 32.5 g/dL (32-36); Mean Corpuscular Volume 95.2 fL (80-100); Mean Platelet Volume 10.3 fL (7.4-10.4); Monocytes # (auto) 0.33 K/uL (0.11-0.59); Monocytes % (auto) 3.1 %; Neutrophils # (auto) 9.61 K/uL (1.4-6.5); Neutrophils % (auto) 91.2 %; Platelet Count 100 K/uL (130-400); RDW Coefficient of Variation 15.2 % (11.5-14.5); RDW Standard Deviation 52.4 fL (36.4-46.3); White Blood Count 10.54 K/uL (4.8-10.8)
[2018-06-29 07:21] LABS: INR 1.4 (0.9-1.1); Prothrombin Time 14.1 Seconds (9.0-12.0)
[2018-06-29 07:41] LABS: Albumin Level 3.1 gm/dl (3.4-5.0); BUN Creatinine Ratio 26.5 (10-20); Creatinine Clr Calc Pharmacy 43.1 ml/min; Est GFR (African American) 51.7; Est GFR (Non-African American) 44.6; Potassium 4.5 mmol/L (3.5-5.1)
[2018-06-29 07:44] LABS: Albumin Globulin Ratio 0.7 (0.9-2); Globulin 4.4 gm/dl (2.5-4.0); Total Protein 7.5 gm/dl (6.4-8.2)
[2018-06-29] MEDS: PRAVASTATIN SOD 40 MG TAB PO SCH (09:02)
[2018-06-29] MEDS: guaiFENesin 600 MG TABCR PO SCH (09:02)
[2018-06-29] MEDS: VERAPAMIL HCL 180 MG TABCR PO SCH (09:02)
[2018-06-29] MEDS: FINASTERIDE 5 MG TAB PO SCH (09:02)
[2018-06-29] MEDS: DORZOLAMIDE/TIMOLOL 22.3/6.8MG/ML 10 ML BTL OPB SCH (09:02)
[2018-06-29] MEDS: PANTOprazole 40 MG in SYRINGE 0 ML IV SCH (11:17)
--- NOTE | 2018-06-29 17:00 | Discharge Summary ---
Date of Service June 29, 2018 Admission HPI Per Admitting Provider The patient is an 88-year-old male who reports having a worsening cough that began a few weeks ago. His cough had briefly improved, but did worsen over the past 24 hours, and when he had a paroxysmal coughing spell earlier in the day which lasted 10 minutes, he began to cough up blood. He does take Coumadin for atrial fibrillation. He has not had any previous histories of bleeding. Principal Diagnosis Community-acquired pneumonia Discharge Exam Constitutional WD/WN, vitals as above Eyes EOM intact bilaterally; no conjunctival abnormality ENMT external ear and nose normal, oropharynx normal Neck trachea midline, no thyromegaly normal visual inspection Respiratory normal respiratory effort, lungs clear to auscultation no respiratory distress Cardiovascular RRR, no murmur, no edema Gastrointestinal (Abdomen) Inspection/Auscultation: abdomen normal to inspection; abdomen not distended Musculoskeletal no cyanosis or clubbing, extremities motor strength 5/5 Skin no rashes, warm and dry Neurologic moves all extremities and awake Psychiatric Orientation: alert, oriented to person and cooperative Discharge Data Allergies Allergy/AdvReac Type Severity Reaction Status Date / Time No Known Allergies Allergy Verified 06/27/18 20:38 Consultations 06/27/18 22:31 ED Decision to Admit Stat 06/28/18 03:28 Consult Case Management - Discharge Planning Routine Consult Pulmonology Routine Ordered Studies 06/27/18 20:49 CT angio chest PE protocol Stat Hospital Course (1) Hemoptysis: Due to community-acquired pneumonia along with his anticoagulation. - Rapidly improved on 24 hours of IV antibiotics -> Switched to oral levofloxacin for a total of a 5-day course - Seen by pulmonology without any need for procedure or other concerns. - Can follow up with PCP next week (2) Pneumonia: As above. (3) Atrial fibrillation: Held warfarin and partially reverse with phytonadione 5 mg IV x1. Rates were normal while inpatient. - On discharge, INR was 1.4. Likely will dip slightly before going back up on his warfarin. - Should follow up with INR sometime next week. (4) Hyperlipidemia: No inpatient changes. (5) Thoracic aortic aneurysm without rupture: 43 mm in diameter, noted incidentally on CTA of chest. - Will need to be followed serially in the outpatient setting. (6) Mediastinal lymphadenopathy: Seen on CT chest on admission. Likely reactive secondary to infection. If persistent upon repeat CT after infection cleared, may require additional workup then. (7) Left thyroid nodule: Noted incidentally on CTA of chest; 9 mm in size. TSH/FT4 were normal. - Decision whether or not to biopsy can be determined by PCP in outpatient setting (8) BPH (benign prostatic hyperplasia): No inpatient changes. (9) Glaucoma: No inpatient changes. Total Time Total Time Spent Total Time Spent (In Minutes): 40 Total Time Includes: Examination of the Patient, Discharge Planning, Medication Reconciliation and Communication With Other Providers Discharge Plan Discharge Items Patient Disposition: Home - Self-Care Reason For Visit: HEMOPTYSIS,B/L MULTIFOCAL PNEUMONIA Discharge Diagnosis: Multifocal pneumonia Condition: Good Discharge Goals: Improve disease control and Improve function Activity: Resume your previous activity Non-emergency contact: Primary Care Provider Call non-emergency contact if: your symptoms worsen, your pain is unusual for you and your temperature is above 100.5 Follow-up/Referrals: Yordan Brian MD [Primary Care Provider] - (Please see Dr. Brian in 1- 2 weeks after your pneumonia.) Diet: Heart Healthy Addtl Provider Instructions: Mr. Dow, You were admitted for pneumonia and for bringing up some blood with your coughing. The CT scan of your chest showed that you have pneumonia in both lungs. You were seen by our lung doctor (Dr. Russell) who thought this was due to irritation of your airways from the pneumonia and from coughing. The blood thinner (Coumadin) made this more likely. You felt significantly better after getting antibiotics and breathing treatments. Please chicken picker your antibiotic at [facility] today and take the next dose this evening before bed. Take it every day until all the pills are gone. Please see Dr. Brian in a week to be sure you're completely better after the pneumonia. Please restart your warfarin at the normal dose and get your INR checked early next week. Please come back to the hospital if you have more shortness of breath, cough, or bring up increasing amounts of blood when you cough. Prescriptions: New levofloxacin 500 mg tablet 500 mg PO QPM 3 Days Qty: 3 RF: 0 Continue tamsulosin 0.4 mg capsule 0.4 mg PO DAILY RF: 0 pravastatin 40 mg tablet 40 mg PO DAILY RF: 0 digoxin 125 mcg tablet 0.125 mg PO DAILY RF: 0 verapamil 180 mg capsule,ext rel. pellets 24 hr 180 mg PO DAILY RF: 0 finasteride 5 mg tablet 5 mg PO DAILY RF: 0 warfarin [Coumadin] 4 mg tablet 4 mg PO DAILY RF: 0 dorzolamide-timolol (PF) 2-0.5 % dropperette 1 drops OPB DAILY RF: 0 lutein-zeaxanthin [Ocuvite Lutein 25] 25-5 mg capsule 1 cap PO DAILY RF: 0 Visit Report Forms: [facility] Stand-Alone Forms: [facility] Discharge Orders: Discharge Order (Routine); Ordered 06/29/18 Ordered By: Xander Sheehan Admission Data Admit Date/Time: 06/28/18 00:40 Attending Provider: Xander Sheehan Admit Provider: Edsi Lama Primary Care Provider: Yordan Brian Other Providers: Rosanna Russell ; Xander Sheehan Service: Telemetry Other Interventions: Discharge Summary Assessment (RN) Last Done: 06/29/18 10:52 DC Date/Time DO NOT enter until pt leaves facility: 06/29/18 11:45
== END 2018-06-29 11:45 | disposition home or self-care (01) | DRG 813 ==
LOC: ED 20:06 → 2N 06-28 00:40 → SUATTDRO 06-28 00:40 → 2N 06-28 03:14